=== PATIENT | female | born 1975 | race Two or more races ===

== ENCOUNTER 2019-10-16 14:13 | Emergency (ER) | payer SELFPAY ==
[~2019-10-16] VITALS: Ht 154.9 cm; Wt 104.8 kg
[2019-10-16 14:17] VITALS: BP 193/81
--- NOTE | 2019-10-16 15:08 | NUR ---
[employer] PARQUET FLOOR LAYER VIDEO USED: [id number] THIS IS A 44 YO FEMALE COMING IN FOR HEADACHE AND SINUS PRESSURE X4 WEEKS, INCREASING PAIN SINCE YESTERDAY. PATIENT STATES "IT FEELS LIKE NERVE PAIN IN MY FACE". PATIENT ALSO C/O DIZZINESS/NAUSEA, AND BLURRED/BURNING EYES. DENIES ANY MEDICAL HX, ONLY SURGERY WAS NATALIYA. CURRENTLY STATES PAIN IS 8/10. VSS, NAD, PATIENT IS HYPERTENSIVE AT 165/88 IN ROOM. CALL LIGHT IN REACH. DENIES NEEDS AT THIS TIME.
--- NOTE | 2019-10-16 15:30 | NUR ---
[employer] MANAGER UTILIZATION VIDEO USED: [id number] PATIENT GIVEN DISCHARGE INSTRUCTIONS AND REVIEWED PRESCRIPTIONS BEING SENT HOME WITH. PATIENT CONFIRMED UNDERSTANDING. PATIENT AMBULATORY WITH STEADY GAIT TO DISCHARGE
== END 2019-10-16 15:39 | disposition home or self-care (01) ==
LOC: ED 15:35
DX: J01.01 Acute recurrent maxillary sinusitis (principal)
CPT/HCPCS: 99283